=== PATIENT | male | born 1995 | race Caucasian/White ===

== ENCOUNTER 2018-04-11 18:11 | Emergency (ER) | payer SELFPAY ==
[~2018-04-11] VITALS: Ht 170.2 cm; Wt 86.2 kg
--- NOTE | 2018-04-11 18:14 | NUR ---
Patient ambulated to bed 10. RN evaluating patient at bedside.
[2018-04-11 18:17] VITALS: BP 144/113
--- NOTE | 2018-04-11 18:20 | NUR ---
PATIENT PRESENTS TO ED WITH COMPLAINTS OF RIGHT LOWER QUADRANT PAIN THAT STARTED THIS MORNING. PATIENT STATES SUDDEN ONSET THIS AM AFTER BOWEL MOVEMENT. PATIENT REPORTS STRAINING/CONSTIPATION. REPORTS NAUSEA AND DRY HEAVING. BOWEL SOUNDS HYPOACTIVE ALL 4 QUADRANTS. SKIN IS PINK/WARM/DRY; AAOX4 WITH EVEN AND STEADY GAIT; LUNGS CLEAR BL; HR EVEN AND REGULAR; PT DENIES ANY FEVER, CP, SOB, OR COUGH AT THIS TIME; PATIENT STATES PAIN OF 8/10 AT THIS TIME; BLOOD PRESSURE ELEVATED; PATIENT POSITIONED FOR COMFORT; HOB ELEVATED; BEDRAILS UP X2; BED DOWN. ER MD MADE AWARE OF PT STATUS.
--- NOTE | 2018-04-11 18:30 | NUR ---
Dr. Rodriguez evaluating patient at bedside.
[2018-04-11] MEDS ORDERED: NACL 0.9% 1,000 ML IV SCH (18:48)
[2018-04-11] MEDS ORDERED: ONDANSETRON 4 MG/2 ML VIAL IVP ONE (18:50)
[2018-04-11] MEDS ORDERED: MORPHINE SULFATE 2 MG/ML SYR IVP ONE (18:50)
[2018-04-11] MEDS ORDERED: KETOROLAC 30 MG/ML VIAL IVP ONE (18:50)
[2018-04-11] MEDS ORDERED: MORPHINE SULFATE 4 MG/ML SYR ONE (18:58)
--- NOTE | 2018-04-11 19:07 | NUR ---
Patient returned from CT scan. RN re-evaluating patient at bedside.
[2018-04-11 19:19] LABS: APPEARANCE,URINE CLEAR (CLEAR); BILIRUBIN,URINE NEGATIVE (NEGATIVE); BLOOD, URINE NEGATIVE (NEGATIVE); COLOR,URINE YELLOW (YELLOW); LEUKOCYTE ESTERASE ,URINE NEGATIVE (NEGATIVE); NITRITE, URINE NEGATIVE (NEGATIVE); PH,URINE 7.5 (5.0-9.0); UGLUCOSE NEGATIVE (NEGATIVE)
[2018-04-11 19:28] LABS: BASOPHILS % (AUTO) 0.4 % (0.0-2.0); EOSINOPHILS # (AUTO) 0.1 K/uL (0-0.4); EOSINOPHILS % (AUTO) 1.3 % (0.0-4.0); HEMATOCRIT 49.6 % (36-52); HEMOGLOBIN 16.9 g/dL (12.0-18.0); LYMPHOCYTES # (AUTO) 1.8 K/uL (2.0-11.5); LYMPHOCYTES % (AUTO) 20.2 % (20.5-51.1); MEAN CORPUSCULAR HEMOGLOBIN 29 pg (27-31); MEAN CORPUSCULAR HGB CONC 34 g/dL (33-37); MEAN CORPUSCULAR VOLUME 86.3 fL (80-94); MONOCYTES # (AUTO) 0.6 K/uL (0.8-1.0); MONOCYTES % (AUTO) 6.4 % (1.7-9.3); NEUTROPHILS # (AUTO) 6.4 K/uL (1.8-7.7); NEUTROPHILS % (AUTO) 71.7 % (42.2-75.2); PLATELET COUNT (AUTO) 225 K/uL (140-450); RED BLOOD CELL COUNT(AUTO) 5.74 MIL/uL (4.20-6.10); RED CELL DISTRIBUTION WIDTH 12.6 % (11.6-13.7); WHITE BLOOD COUNT (AUTO) 8.8 K/uL (4.8-10.8)
[2018-04-11 19:39] LABS: ANION GAP 13.6 (8-16); CARBON DIOXIDE 30.3 mmol/L (21-32); CREATININE 1.2 mg/dL (0.7-1.3); POTASSIUM 3.9 mmol/L (3.5-5.1)
[2018-04-11 19:45] LABS: ALBUMIN 4.4 g/dL (3.4-5.0); TOTAL BILIRUBIN 0.5 mg/dL (0.0-1.0)
--- NOTE | 2018-04-11 19:55 | NUR ---
Patient discharged with v/s stable. Written and verbal after care instructions given and explained. Patient alert, oriented and verbalized understanding of instructions. Ambulatory with steady gait. All questions addressed prior to discharge. ID band removed. Patient advised to follow up with PMD. Rx of MOTRIN AND SENOKOT given. Patient educated on indication of medication including possible reaction and side effects. Opportunity to ask questions provided and answered. IV removed, catheter intact and site benign. Applied folded 4x4 gauze and tape to stop bleeding.
[2018-04-11 19:59] VITALS: BP 138/72
== END 2018-04-11 19:55 | disposition home or self-care (01) ==
LOC: MED 18:11
DX: R10.31 Right lower quadrant pain (principal); I10 Essential (primary) hypertension
CPT/HCPCS: 36415; 74176; 80053; 81003; 82150; 83690; 85025; 96361; 96374; 96375; 99285; J1885; J2270; J2405; J7030

== ENCOUNTER 2018-04-14 23:19 | Emergency (ER) | payer SELFPAY ==
[~2018-04-14] VITALS: Ht 170.2 cm; Wt 86.0 kg
[2018-04-14 23:25] VITALS: BP 139/88
--- NOTE | 2018-04-14 23:30 | NUR ---
ASSUMED CARE OF PT AT THIS TIME. C/O DIFFUSE ABDOMINAL PAIN W/ N/V AND MILD CONSTIPATION X 1 DAY. PT SEEN HERE ON THURSDAY FOR CONSTIPATION BUT NO VOMITING. PT DENIES ANY DIARRHEA OR URINARY COMPLAINTS. SKIN IS PINK/WARM/DRY; AAOX4 WITH EVEN AND STEADY GAIT; LUNGS CLEAR BL; HR EVEN AND REGULAR; PT DENIES ANY FEVER, CP, SOB, OR COUGH AT THIS TIME; PATIENT STATES PAIN OF 7/10 AT THIS TIME; VSS; PATIENT POSITIONED FOR COMFORT; HOB ELEVATED; BEDRAILS UP X2; BED DOWN. ER MD MADE AWARE OF PT STATUS. WILL CONTINUE TO MONITOR.
--- NOTE | 2018-04-14 23:30 | NUR ---
PT AMBULATED TO BED 5
[2018-04-15] MEDS ORDERED: DICYCLOMINE HCL LIQUID 20 MG, ALUMINUM HYD/MAG/SIMETHICONE 30 ML, LIDOCAINE VISCOUS 2% ... PO ONE ×3
[2018-04-15] MEDS ORDERED: KETOROLAC 60 MG/2 ML VIAL IM ONE (00:25)
[2018-04-15 00:55] VITALS: BP 132/78
--- NOTE | 2018-04-15 00:55 | NUR ---
Patient discharged with v/s stable. Written and verbal after care instructions given and explained. Patient alert, oriented and verbalized understanding of instructions. Ambulatory with steady gait. All questions addressed prior to discharge. ID band removed. Patient advised to follow up with PMD. Rx of PRILOSEC given. Patient educated on indication of medication including possible reaction and side effects. Opportunity to ask questions provided and answered.
== END 2018-04-15 00:55 | disposition home or self-care (01) ==
LOC: MED 23:19
DX: R10.13 Epigastric pain (principal)
CPT/HCPCS: 96372; 99283; J1885; 81002